=== PATIENT | female | born 1930 | race Hispanic/Latino ===

== ENCOUNTER 2018-09-28 18:23 | Inpatient (IN) | payer OTHER, MEDICARE | END 2018-09-30 12:20 | disposition home or self-care (01) | LOC: EDH 18:23 → EDHIP 20:50 → 3BH 23:50 | DX: N17.9 Acute kidney failure, unspecified (principal); E87.70 Fluid overload, unspecified; N18.5 Chronic kidney disease, stage 5; I49.9 Cardiac arrhythmia, unspecified; K21.9 Gastro-esophageal reflux disease without esophagitis; E11.65 Type 2 diabetes mellitus with hyperglycemia; I50.9 Heart failure, unspecified ==